=== PATIENT | male | born 1950 | race Caucasian/White ===

== ENCOUNTER → 2017-01-06 | Outpatient (CLI) | payer OTHER ==
[2017-01-06 08:25] LABS: BUN 21 mg/dL (7-18); GFR (ESTIMATED) 67 ML/MIN (>60)
[2017-01-07 10:39] LABS: Creatinine, Urine 230.3 mg/dL (Not Estab.); Microalbumin, Urine 97.1 ug/mL (Not Estab.)
== END ==
LOC: LAB 07:18
PROVIDERS: Nurse Practitioner Family
DX: E11.69 Type 2 diabetes mellitus with other specified complication (principal)